=== PATIENT | female | born 1970 | race Caucasian/White ===

== ENCOUNTER → 2016-10-21 | Outpatient (CLI) | payer BC ==
[~2016-10-21] MED LIST: ADDERALL PO; KLONOPIN PO
--- NOTE | ~2016-10-21 | CR63 ---
[facility] A Service of [facility] / [facility] RADIOLOGY TEXT RESULTS PATIENT: ESTHER PAULA LOCATION: [facility] : 68 UNIT #: [id number] AGE: [address]: Cecilia Grande SEX: F ORDER DR: [id number] [place] [id number] O MR#: [id number] Acc #: [id number] NAME: ESTHER PAULA : 1970 SEX: F STUDY DATE/TIME: 10/21/2016 18:07 UNIT: SRAD ROOM: STUDY DESCRIPTION: CR Chest 2 View Attending Physician: Cecilia Grande A.P.R.N. Ordering Physician: Cecilia Grande A.P.R.N. Primary Care Physician: Trinidad Sagastume A.P.R.N. MEDICAL IMAGING REPORT This report is preliminary unless electronic signature is present. EXAM 2 view chest. DATE OF EXAM 10/21/2016 INDICATION Chest pain for 5 days. Pain with inspiration. FINDINGS PA and lateral views of the chest without comparison. Heart and mediastinal contours are normal. The lungs are clear. No pleural effusion. IMPRESSION No acute cardiopulmonary findings. Dictated by... Dharmesh Hernandez M.D. THIS IS AN ELECTRONICALLY VERIFIED REPORT Dharmesh Hernandez M.D. at 10/22/2016 3:03 PM CLAUDIA/nu TD: 10/21/2016 23:53 JOB #: [id number] MEDICAL IMAGING REPORT [facility] A Service of [facility] / [facility] RADIOLOGY TEXT RESULTS PATIENT: ESTHER PAULA LOCATION: [facility] : 68 UNIT #: [id number] AGE: [address]: Cecilia Grande SEX: F ORDER DR: Page 1 of 1
== END | disposition home or self-care (01) ==
LOC: SRAD 17:52
DX: R07.9 Chest pain, unspecified (principal)
CPT/HCPCS: 71020